=== PATIENT | female | born 1975 | race Caucasian/White ===

== ENCOUNTER 2025-03-12 08:07 | Emergency (ER) | payer OTHER, SELFPAY ==
--- OUTSIDE RECORDS SUMMARY | 2025-03-12 08:09 | XMS_ITS | Encounter Summary ---
Author Organization [employer] Address 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 Gender Identity Not on file Sexual Orientation Not on file documented as of this encounter Plan of Treatment Not on file documented as of this encounter Procedures Procedure Name Priority Date/Time Associated Diagnosis Comments CBC WITH DIFFERENTIAL Routine 09/15/2004 11:40 PM CDT CBC WITH DIFFERENTIAL Routine 09/15/2004 11:40 PM CDT documented in this encounter Results * CBC WITH DIFFERENTIAL (09/15/2004 11:40 PM CDT) NEUTROPHILS 70 45 - 70 % INTERFAC E SYSTEM LYMPHOCYTES 25 16 - 45 % INTERFAC E SYSTEM MONOCYTES 5 3 - 13 % INTERFACE SYSTEM EOSINOPHILS 0 0 - 7 % INTERFAC E SYSTEM BASOPHILS 0 0 - 2 % INTERFACE SYSTEM NEUTROPHIL ABSOLUTE 6.68 1.90 - 7.00 K/uL INTERFACE SYSTEM LYMPHOCYTE ABSOLUTE 2.34 0.70 - 4.50 K/uL INTERFACE SYSTEM MONOCYTE ABSOLUTE 0.50 0.10 - 1.30 K/uL INTERFACE SYSTEM EOSINOPHIL ABSOLUTE 0.03 0.00 - 0.70 K/uL INTERFACE SYSTEM BASOPHILS ABSOLUTE 0.02 0.00 - 0.20 K/uL INTERFACE SYSTEM 09/15/2004 11:4 0 PM CDT Annalee Tillman Jr., MD HEMATOLOGY ORDERABLES Olivia l Result Performing Organization Address City/[facility] Co de Phone Number INTERFACE SYSTEM Refer to clinic/hospital department * (ABNORMAL) CBC WITH DIFFERENTIAL (09/15/2004 11:40 PM CDT) WBC 9.6 4.0 - 9.8 K/uL INTERFACE SYSTEM RBC 3.62(L) 3.90 - 4.90 M/uL INTERFACE SYSTEM HEMOGLOBIN 10.5(L) 11.8 - 14.8 g/dL INTERFACE SYSTEM HEMATOCRIT 31.8(L) 35.5 - 44.0 % INTERFACE SYSTEM MCV 87.8 82.0 - 99.0 fL INTERFACE SYSTEM MCH 29.0 27.2 - 32.6 pg INTERFACE SYSTEM MCHC 33.0 31.5 - 35.5 % INTERFACE SYSTEM RDW 14.3 11.5 - 14.5 % INTERFACE SYSTEM RDW-STDEV 45.4 37.1 - 48.7 fL INTERFACE SYSTEM PLATELETS 140 140 - 350 K/uL INTERFACE SYSTEM MPV 12.1 9.3 - 12.4 fL INTERFACE SYSTEM 09/15/2004 11:4 0 PM CDT Annalee Tillman Jr., MD HEMATOLOGY ORDERABLES Olivia l Result Performing Organization Address City/[facility] Co de Phone Number INTERFACE SYSTEM Refer to clinic/hospital department documented in this encounter Visit Diagnoses Diagnosis Congenital or acquired abnormality of vulva, with delivery- Primary documented in this encounter Care Teams Stacker And Sorter Operator Relationship Specialty Start Date End Date Felipe Goss MD [address] [facility] [address] [place] [address] PCP - General Family Practice 01/14/17 documented as of this encounter
--- OUTSIDE RECORDS SUMMARY | 2025-03-12 08:09 | XMS_ITS | Encounter Summary ---
Author Organization [employer] Address [address] [place] [address] Care Team Providers Care Crown And Bridge Dental Lab Technician Name Role Phone Felipe Goss MD Primary Care Provider [phone] Encounter Details Date Type Department Care Team (Latest Contact Info) Description 11/08/2001 Inpatient Historical HIS PATIENT IN A BED Annalee Tillman Jr., MD NO ADDRESS ON FILE PREV DELIVERY NOS-DELIVER (Primary Dx) Social History Tobacco Use Types Packs/Day Years Used Date Smoking Tobacco: Never Assessed Comments Unknown Sex and Gender Information Value Date Recorded Sex Assigned at Not on file Legal Sex Female 5:20 AM PRODUCT EXAMINER Gender Identity Not on file Sexual Orientation Not on file documented as of this encounter Plan of Treatment Not on file documented as of this encounter Visit Diagnoses Diagnosis Previous delivery, delivered, with or without mention of antepartum condition- Primary documented in this encounter Care Teams Crown And Bridge Dental Lab Technician Relationship Specialty Start Date End Date Felipe Goss MD [address] [facility] [address] [place] [phone] PCP - General Family Practice 01/14/17 documented as of this encounter
--- OUTSIDE RECORDS SUMMARY | 2025-03-12 08:09 | XMS_ITS | Encounter Summary ---
Author Organization [employer] Address [address] [place] [address] Care Team Providers Care Certifed Refrigeration Operator Name Role Phone Felipe Goss MD Primary Care Provider [phone] Encounter Details Date Type Department Care Team (Latest Contact Info) Description 07/18/1999 Inpatient Historical HIS PATIENT IN A BED Annalee Tillman Jr., MD NO ADDRESS ON FILE Other and unspecified uterine inertia, with delivery (Primary Dx) Social History Tobacco Use Types Packs/Day Years Used Date Smoking Tobacco: Never Assessed Comments Unknown Sex and Gender Information Value Date Recorded Sex Assigned at Not on file Legal Sex Female 5:20 AM DICE MAKER Gender Identity Not on file Sexual Orientation Not on file documented as of this encounter Plan of Treatment Not on file documented as of this encounter Visit Diagnoses Diagnosis Other and unspecified uterine inertia, with delivery- Primary documented in this encounter Care Teams Certifed Refrigeration Operator Relationship Specialty Start Date End Date Felipe Goss MD [address] [facility] [address] [place] [address] PCP - General Family Practice 01/14/17 documented as of this encounter
--- OUTSIDE RECORDS SUMMARY | 2025-03-12 08:09 | XMS_ITS | Encounter Summary ---
Author Organization [facility] Address [address] [place] [address] Care Team Providers Care Armature Tester Name Role Phone Felipe Goss MD Primary Care Provider [phone] Encounter Details Date Type Department Care Team (Late st Contact Info) Description 11/19/2001 Outpatient Historical [facility] Annalee Tillman Jr., MD NO ADDRESS ON FILE Social History Tobacco Use Types Packs/Day Years Used Date Smoking Tobacco: Never Assessed Comments Unknown Sex and Gender Information Value Date Recorded Sex Assigned at Not on file Legal Sex Female 5:20 AM TELEMETRY RN Gender Identity Not on file Sexual Orientation Not on file documented as of this encounter Plan of Treatment Not on file documented as of this encounter Visit Diagnoses Not on filedocumented in this encounter Care Teams Armature Tester Relationship Specialty Start Date End Date Felipe Goss MD [address] [facility] [address] [place] [address] PCP - General Family Practice 01/14/17 documented as of this encounter
--- OUTSIDE RECORDS SUMMARY | 2025-03-12 08:09 | XMS_ITS | Encounter Summary ---
Author Organization [facility] Address [address] [place] [address] Care Team Providers Care Frame Gate Mortiser Operator Name Role Phone Felipe Goss MD Primary Care Provider [phone] Encounter Details Date Type Department Care Team (Late st Contact Info) Description 11/02/2001 Outpatient Historical [facility] Maternal and Ground Floor [address] [facility] [address] [place] [address] Víctor Harris MD [address] [facility] [address] [place] [address] Social History Tobacco Use Types Packs/Day Years Used Date Smoking Tobacco: Never Assessed Comments Unknown Sex and Gender Information Value Date Recorded Sex Assigned at Not on file Legal Sex Female 5:20 AM CARD LACER 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
--- OUTSIDE RECORDS SUMMARY | 2025-03-12 08:10 | XMS_ITS | Encounter Summary ---
Author Organization [facility] Address [address] [place] [address] Care Team Providers Care Ironer Or Presser Name Role Phone Felipe Goss MD Primary Care Provider [phone] Encounter Details Date Type Department Care Team (Late st Contact Info) Description 10/15/2001 Outpatient Historical [facility] Maternal and Ground Floor [address] [facility] [address] [place] [address] Víctor Harris MD [address] [facility] [address] [place] [address] Social History Tobacco Use Types Packs/Day Years Used Date Smoking Tobacco: Never Assessed Comments Unknown Sex and Gender Information Value Date Recorded Sex Assigned at Not on file Legal Sex Female 5:20 AM 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
--- OUTSIDE RECORDS SUMMARY | 2025-03-12 08:10 | XMS_ITS | Clinical Summary ---
Author Organization [facility] Address [address] [facility] [place] [address] Phone Care Team Providers Care Community Outreach Manager Name Role Phone Felipe Goss MD Primary Care Provider [phone] Allergies No known active allergies Family History Medical History Relation Name Comments Breast Cancer Paternal Aunt 50s? Relation Name Status Comments Paternal Aunt Social History Tobacco Use Types Packs/Day Years Used Date Smoking Tobacco: Never Assessed Comments Unknown Sex and Gender Information Value Date Recorded Sex Assigned at Not on file Legal Sex Female 5:20 AM SYSTEM MANAGER Gender Identity Not on file Sexual Orientation Not on file Last Filed Vital Signs Vital Sign Reading Time Taken Comments Blood Pressure - - Pulse - - Temperature - - Respiratory Rate - - Oxygen Saturation - - Inhaled Oxygen Concentration - - Weight 52.2 kg (115 lb) 08/18/2018 9:00 AM CDT Height 160 cm (5' 3) 08/18/2018 9:00 AM CDT Body Mass Index 20.37 08/18/2018 9:00 AM CDT Plan of Treatment Health Maintenance Due Date Last Done Comments DTAP/TDAP/TD VACCINES (1 - Tdap) 1994 HEPATITIS B VACCINES (1 of 3 - 19+ 3-dose series) 1994 HPV/Cotest (21-29) 1996 CERVICAL CANCER SCREENING 2005 HPV/Cotest (30-65) 2005 PAP SMEAR 2005 COLORECTAL SCREENING 2020 Colorectal Cancer Screening 2020 FIT-DNA Q 3 years 2020 FIT/FOBT Q 1 year 2020 Flex Sig/CT Colonography Q 5 years 2020 BREAST CANCER SCREENING 02/06/2024 02/06/20 23, 02/12/2022, 11/04/2019, Additional history exists INFLUENZA VACCINE (#1) 2024 Procedures Procedure Name Priority Date/Time Associated Diagnosis Comments MAMMO 3D AVILA DIAGNOSTIC BILAT W OR WO CAD Routine 02/05/2023 12:12 PM CDT Mass of breast, unspecified laterality from Last 3 Months or Most Recently Relevant to Health Maintenance Results * MAMMO DIAG BILAT 3D AVILA W OR WO CAD (02/05/2023 12:12 PM CDT) Anatomical Region Laterality Modality Breast Bilateral Mammography 02/05/2023 12:2 2 PM CDT Impressions 02/05/2023 12:52 PM CDT IMPRESSION: No suspicious finding within either breast. Annual mammography recommended. BI-RADS Category 2: Benign findings DICTATION LOCATION: [facility] 02/05/2023 12:52 PM CDT EXAM: BILATERAL DIGITAL DIAGNOSTIC MAMMOGRAPHY WITH TOMOSYNTHESIS AND CAD BILATERAL IMPLANT DISPLACED VIEWS LIMITED RIGHT BREAST ULTRASOUND Exam date: 02/05/2023 INDICATION: Palpable right breast lump at the 10:00 axis. COMPARISON: Mammography dated 02/12/2022 and older. BREAST COMPOSITION: The breasts are heterogeneously dense, which may obscure small masses. MAMMOGRAM: Bilateral breast implants are noted. The palpable lump corresponds to dense tissue. There is no suspicious calcification. No concerning mass. Ultrasound was performed. ULTRASOUND: Targeted real-time ultrasound was performed on the palpable right breast lump. At the 10:00 axis, 7 cm from the nipple, there are multiple anechoic simple cysts corresponding to the palpable lump. The dominant cyst measures up to 1.5 cm. No abnormal shadowing. Procedure Note Taylor Madrigal MD - 02/05/2023 EXAM: BILATERAL DIGITAL DIAGNOSTIC MAMMOGRAPHY WITH TOMOSYNTHESIS AND CAD BILATERAL IMPLANT DISPLACED VIEWS LIMITED RIGHT BREAST ULTRASOUND Exam date: 02/05/2023 INDICATION: Palpable right breast lump at the 10:00 axis. COMPARISON: Mammography dated 02/12/2022 and older. BREAST COMPOSITION: The breasts are heterogeneously dense, which may obscure small masses. MAMMOGRAM: Bilateral breast implants are noted. The palpable lump corresponds to dense tissue. There is no suspicious calcification. No concerning mass. Ultrasound was performed. ULTRASOUND: Targeted real-time ultrasound was performed on the palpable right breast lump. At the 10:00 axis, 7 cm from the nipple, there are multiple anechoic simple cysts corresponding to the palpable lump. The dominant cyst measures up to 1.5 cm. No abnormal shadowing. IMPRESSION: No suspicious finding within either breast. Annual mammography recommended. BI-RADS Category 2: Benign findings DICTATION LOCATION: [facility] Nancie De Leon MD MAMMO ORDERABLES Final R esult from Last 3 Months or Most Recently Relevant to Health Maintenance Insurance [address] OPEN ACCESS O Care Teams Community Outreach Manager Relationship Specialty Start Date End Date Felipe Goss MD [address] [address] PCP - General Family Practice 01/14/17
--- OUTSIDE RECORDS SUMMARY | 2025-03-12 08:10 | XMS_ITS | Clinical Summary ---
Author Organization [facility] [address] Address [address] [place] [address] Care Team Providers Care Choke Setter Name Role Phone No, Physician Primary Care Provider [phone] Allergies No known active allergies Medications latanoprost (XALATAN) 0.005 % ophthalmic solution 01/20/2023 Active brimonidine (ALPHAGAN) 0.15 % ophthalmic solution 1 drop 3 (three) times a day Active Active Problems No known active problems Medical History Medical History Date Comments Glaucoma Social History Tobacco Use Types Packs/Day Years Used Date Smoking Tobacco: Never Assessed Comments Unknown Sex and Gender Information Value Date Recorded Sex Assigned at Not on file Legal Sex Female 9:04 AM CARROT BUNCHER Gender Identity Not on file Sexual Orientation Not on file Last Filed Vital Signs Vital Sign Reading Time Taken Comments Blood Pressure 112/64 02/25/2023 11:10 AM CARROT BUNCHER Pulse 73 02/25/2023 11:10 AM CARROT BUNCHER Temperature 36.7 C (98 F) 02/25/2023 11:10 AM CARROT BUNCHER Respiratory Rate 20 02/25/2023 11:10 AM CARROT BUNCHER Oxygen Saturation 99% 02/25/2023 11:10 AM CARROT BUNCHER Inhaled Oxygen Concentration - - Weight 52.2 kg (115 lb) 02/25/2023 11:10 AM CARROT BUNCHER Height 161.3 cm (5' 3.5) 02/25/2023 11:10 AM CS T Body Mass Index 20.05 02/25/2023 11:10 AM CARROT BUNCHER Plan of Treatment Health Maintenance Due Date Last Done Comments Breast Cancer Screening-Mammogram 1975 Cervical Cancer Screening 1975 Colon Cancer Screening-Colonoscopy 1975 Depression Screening 1975 Hepatitis C Screening 1975 DTaP/Tdap/Td Vaccine (1 - Tdap) 1986 Hepatitis B Screening 1993 Regular Well Visit/Exam 18-64 1993 Covid-19 Vaccine ( season) 2024 03/07/2021, 07/27/2020, 07/06/2020 Influenza Vaccine (#1) 2024 , 03/07/2021, 03/23/2019, Additional history exists Pneumococcal vaccine <65 Aged Out No longer eligible based on patient's age to complete this topic Insurance [employer] Care Teams Choke Setter Relationship Specialty Start Date End Date No, Physician PCP - General 02/25/23
--- OUTSIDE RECORDS SUMMARY | 2025-03-12 08:10 | XMS_ITS | Clinical Summary ---
Author Organization [facility] Address [address] [place] [address] Care Team Providers Care Community Relations Assistant Name Role Phone Unavailable Primary Care Provider Unavailabl e Social History Tobacco Use Types Packs/Day Years Used Date Smoking Tobacco: Never Assessed Comments Unknown Sex and Gender Information Value Date Recorded Sex Assigned at Not on file Legal Sex Female 4:53 PM CDT Gender Identity Not on file Sexual Orientation Not on file Plan of Treatment Health Maintenance Due Date Last Done Comments Cervical Cancer Screening Pa p Smear (Age 30 to 64) Every 3 Years 1975 Colorectal Cancer Screening Colonoscopy (10 Years) 1975 Annual Physical 1978 Hepatitis C 1993 DTaP, Tdap and Td Vaccines ( 1 - Tdap) 1994 Hepatitis B Vaccines (1 of 3 - 19+ 3-dose series) 1994 Cervical Cancer Screening Pa p with HPV Testing (Age 30 to 64) Every 5 Years 2005 Cervical Cancer Screening with HPV 2005 Mammogram Screening 2015 COVID-19 Vaccine (2024-2 6 season) 2024 Influenza Adult (#1) 2025 Hepatitis A Vaccines Aged Out No long er eligible based on patient's age to complete this topic Meningococcal B Vaccine Aged Out No l onger eligible based on patient's age to complete this topic Meningococcal Vaccine Aged Out No stephanie alvaro eligible based on patient's age to complete this topic Pneumococcal Vaccine: Pediat rics (0 to 5 Years) and At-Risk Patients (6 to 49 Years) Aged Out No longer eligible b ased on patient's age to complete this topic RSV Immunizations Under 20 Months Aged Out No longer eligible based on patient's age to complete this topic
--- OUTSIDE RECORDS SUMMARY | 2025-03-12 08:10 | XMS_ITS | Encounter Summary ---
Author Organization [email or web address] Address [address] [place] [address] Care Team Providers Care Solar Installation Technician Name Role Phone Felipe Goss MD Primary Care Provider [phone] Encounter Details Date Type Department Care Team (Latest Contact Info) Description 09/16/2001 Outpatient Historical [facility] Annalee Tillman Jr., MD NO ADDRESS ON FILE ABNL FINDINGS ON SCREEN (Primary Dx) Social History Tobacco Use Types Packs/Day Years Used Date Smoking Tobacco: Never Assessed Comments Unknown Sex and Gender Information Value Date Recorded Sex Assigned at Not on file Legal Sex Female 5:20 AM DYE MIXER Gender Identity Not on file Sexual Orientation Not on file documented as of this encounter Plan of Treatment Not on file documented as of this encounter Visit Diagnoses Diagnosis Abnormal findings on screening- Primary documented in this encounter Care Teams Solar Installation Technician Relationship Specialty Start Date End Date Felipe Goss MD [address] [facility] [address] [place] [address] PCP - General Family Practice 01/14/17 documented as of this encounter
--- OUTSIDE RECORDS SUMMARY | 2025-03-12 08:10 | XMS_ITS | Encounter Summary ---
Author Organization [facility] Address [address] [place] [address] Care Team Providers Care Compact Assembler Name Role Phone Felipe Goss MD Primary Care Provider [phone] Encounter Details Date Type Department Care Team (Late st Contact Info) Description 09/07/2001 Outpatient Historical [facility] Maternal and Ground Floor [address] [facility] [address] [place] [address] Víctor Harris MD [address] [facility] [address] [place] [address] Social History Tobacco Use Types Packs/Day Years Used Date Smoking Tobacco: Never Assessed Comments Unknown Sex and Gender Information Value Date Recorded Sex Assigned at Not on file Legal Sex Female 5:20 AM PULPIT OPERATOR Gender Identity Not on file Sexual Orientation Not on file documented as of this encounter Plan of Treatment Not on file documented as of this encounter Visit Diagnoses Not on filedocumented in this encounter Care Teams Compact Assembler Relationship Specialty Start Date End Date Felipe Goss MD [address] [facility] [address] [place] [address] PCP - General Family Practice 01/14/17 documented as of this encounter
--- OUTSIDE RECORDS SUMMARY | 2025-03-12 08:10 | XMS_ITS | Encounter Summary ---
Author Organization [employer] Address [address] [place] [address] Care Team Providers Care License Examiner Name Role Phone Felipe Goss MD Primary Care Provider [phone] Encounter Details Date Type Department Care Team (Late st Contact Info) Description 01/21/2006 Outpatient Historical [facility] Dino Velasquez MD [address] [facility] [address] [place] [phone] Other Screening Mammogram (Primary Dx) Social History Tobacco Use Types Packs/Day Years Used Date Smoking Tobacco: Never Assessed Comments Unknown Sex and Gender Information Value Date Recorded Sex Assigned at Not on file Legal Sex Female 5:20 AM SHIP PILOT Gender Identity Not on file Sexual Orientation Not on file documented as of this encounter Plan of Treatment Not on file documented as of this encounter Visit Diagnoses Diagnosis Other screening mammogram- Primary documented in this encounter Care Teams License Examiner Relationship Specialty Start Date End Date Felipe Goss MD [address] [facility] [address] [place] [address] PCP - General Family Practice 01/14/17 documented as of this encounter
--- OUTSIDE RECORDS SUMMARY | 2025-03-12 08:10 | XMS_ITS | Encounter Summary ---
Author Organization [employer] Address [address] [place] [address] Care Team Providers Care Signals Collection Technician Name Role Phone Felipe Goss MD Primary Care Provider [phone] Encounter Details Date Type Department Care Team (Latest Contact Info) Description 07/14/2001 Outpatient Historical [facility] Annalee Tillman Jr., MD NO ADDRESS ON FILE ABNL FINDINGS ON SCREEN (Primary Dx) Social History Tobacco Use Types Packs/Day Years Used Date Smoking Tobacco: Never Assessed Comments Unknown Sex and Gender Information Value Date Recorded Sex Assigned at Not on file Legal Sex Female 5:20 AM WEATHERIZATION FIELD TECHNICIAN Gender Identity Not on file Sexual Orientation Not on file documented as of this encounter Plan of Treatment Not on file documented as of this encounter Visit Diagnoses Diagnosis Abnormal findings on screening- Primary documented in this encounter Care Teams Signals Collection Technician Relationship Specialty Start Date End Date Felipe Goss MD [address] [facility] [address] [place] [address] PCP - General Family Practice 01/14/17 documented as of this encounter
--- OUTSIDE RECORDS SUMMARY | 2025-03-12 08:10 | XMS_ITS | Encounter Summary ---
Author Organization [email or web address] Address [address] [place] [address] Care Team Providers Care Warp Changer Name Role Phone Felipe Goss MD Primary Care Provider [phone] Encounter Details Date Type Department Care Team (Latest Contact Info) Description 08/15/2001 Outpatient Historical [facility] Annalee Tillman Jr., MD NO ADDRESS ON FILE ABNL FINDINGS ON SCREEN (Primary Dx) Social History Tobacco Use Types Packs/Day Years Used Date Smoking Tobacco: Never Assessed Comments Unknown Sex and Gender Information Value Date Recorded Sex Assigned at Not on file Legal Sex Female 5:20 AM GLOVE TURNER AND FORMER Gender Identity Not on file Sexual Orientation Not on file documented as of this encounter Plan of Treatment Not on file documented as of this encounter Visit Diagnoses Diagnosis Abnormal findings on screening- Primary documented in this encounter Care Teams Warp Changer Relationship Specialty Start Date End Date Felipe Goss MD [address] [facility] [address] [place] [address] PCP - General Family Practice 01/14/17 documented as of this encounter
--- OUTSIDE RECORDS SUMMARY | 2025-03-12 08:10 | XMS_ITS | Encounter Summary ---
Author Organization [facility] Address [address] [place] [address] Care Team Providers Care Learning And Development Director Name Role Phone Felipe Goss MD Primary Care Provider [phone] Encounter Details Date Type Department Care Team (Latest Contact Info) Description 10/18/2001 Outpatient Historical [facility] Annalee Tillman Jr., MD NO ADDRESS ON FILE ABNL FINDINGS ON SCREEN (Primary Dx) Social History Tobacco Use Types Packs/Day Years Used Date Smoking Tobacco: Never Assessed Comments Unknown Sex and Gender Information Value Date Recorded Sex Assigned at Not on file Legal Sex Female 5:20 AM MENTAL HEALTH PROGRAM SPECIALIST Gender Identity Not on file Sexual Orientation Not on file documented as of this encounter Plan of Treatment Not on file documented as of this encounter Visit Diagnoses Diagnosis Abnormal findings on screening- Primary documented in this encounter Care Teams Learning And Development Director Relationship Specialty Start Date End Date Felipe Goss MD [address] [facility] [address] [place] [address] PCP - General Family Practice 01/14/17 documented as of this encounter
--- OUTSIDE RECORDS SUMMARY | 2025-03-12 08:10 | XMS_ITS | Encounter Summary ---
Author Organization [facility] Address 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
[2025-03-12 08:24] VITALS: BP 135/74; PULSE 87; RESP 20; TEMP 36.8; O2SAT 100
--- NOTE | 2025-03-12 08:35 | ED.URI ---
HPI - URI/Sore Throat General Chief Complaint: Upper Respiratory Infection Stated Complaint: sore throat Time Seen by Provider: 03/12/25 08:30 Source: patient and RN notes reviewed Mode of arrival: ambulatory Limitations: no limitations History of Present Illness HPI Narrative: 49-year-old female presents concern for sore throat, chills, body aches, headache and nasal congestion. 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 She reports most of the symptoms for couple of days, but the nasal congestion started before Thanksgiving. MD elicited complaint: sore throat Related Data Home Medications ?Medication ?Instructions ?Recorded ?Confirmed ?Last Taken ?Type brimonidine 0.15 % eye drops 1 drp EACH EYE Q8H 11/20/20 Unknown History latanoprost 0.005 % eye drops drp 03/12/25 Unknown History Allergies Allergy/AdvReac Type Severity Reaction Status Date / Time No Known Allergies Allergy Verified 03/12/25 08:21 Review of Systems Review of Systems: CONSTITUTIONAL: Reports malaise, chills EYES: Denies visual changes, redness, or discharge. ENT: Reports rhinorrhea, congestion, and sore throat. CARDIOVASCULAR: Denies chest pain, palpitations, or edema. RESPIRATORY: Reports cough. Denies dyspnea. GASTROINTESTINAL: Denies abdominal pain, nausea, vomiting, diarrhea SKIN: Denies rash or itching. MUSCULOSKELETAL: Reports myalgia. NEUROLOGIC: Reports headache. All systems reviewed & are unremarkable except as noted in HPI and below PMFSH Family History Family History Mother Family history of rheumatoid arthritis Family history of lupus erythematosus Sibling Family history of lupus erythematosus Social History Social History Smoking status: Never smoker Alcohol intake: current Alcohol use details: social Substance use: never Living arrangements: with family Occupation/Education: other Gender identity (if verbalized by the patient): Female Comments At time of signature, agree with nursing past medical, surgical, social and family history. There is no relevant family history pertinent to the presenting complaint Exam Narrative: GENERAL: Well-appearing, well-nourished, and in no acute distress. HEAD: Normocephalic EYES: PERRLA, conjunctivae clear ENT: Nares clear. Mucous membranes moist. TM pearly amos with sharp light reflex bilaterally; no tragal tenderness. Oropharynx erythematous without lesions. Tonsils enlarged and without exudate, no drooling, no hoarseness, no trismus, uvula midline. NECK: Supple. No lymphadenopathy CHEST: Clear to auscultation, breath sounds equal. No wheezing, rhonchi, rales, or stridor. No respiratory distress, speaks in full sentences. HEART: Regular rate and rhythm. No murmur heard. SKIN: Warm, dry, no rash. NEURO: Alert and oriented x3. PSYCH: Normal mood and affect Course Course Level of Care: [facility] Visit Vital Signs Vital signs: Vital Signs Temperature 98.3 F 03/12/25 08:24 Pulse Rate 87 03/12/25 08:24 Respiratory Rate 20 03/12/25 08:24 Blood Pressure 135/74 03/12/25 08:24 Pulse Oximetry 100 03/12/25 08:24 Oxygen Delivery Room Air 03/12/25 08:24 Temperature 98.3 F 03/12/25 08:24 Pulse Rate 87 03/12/25 08:24 Respiratory Rate 20 03/12/25 08:24 Blood Pressure 135/74 03/12/25 08:24 Pulse Oximetry 100 03/12/25 08:24 Oxygen Delivery Room Air 03/12/25 08:24 MDM Differential Diagnosis Differential Diagnosis: I evaluated this patient in the [facility]. History is obtained from patient who is an independent historian and physical exam was performed.? Available medical records were reviewed. ? Exam findings and relevant testing show no acute concerns or changes; patient is non-toxic appearing and is in no distress. ? Differential diagnosis considered: Olivarez virus, strep pharyngitis, allergic rhinitis, upper respiratory tract infection, sinusitis, rhinosinusitis, nasopharyngitis. viral pharyngitis, otitis media, otitis externa, pneumonia, bronchitis, viral cough syndrome, viral syndrome, and influenza. Differential diagnosis and treatment plan were discussed with the patient. Patient agrees with discussion and after shared medical decision making agrees with plan of care. All questions were answered to the patient's satisfaction. Patient is appropriate for outpatient treatment and follow-up. Discharge Plan Discharge Clinical Impression: Strep throat Patient Disposition: Home Condition: Stable Instructions: Antibiotic Form, Strep Throat (ED) Additional Instructions: -Take the medication as prescribed. Throw away the toothbrush after 24hours of antibiotic. -Eat and drink things that are easy to swallow, like tea or soup, or popsicles to suck on. -Oral rinses such as: Salt water gargles and/or may use topical anesthetic (eg. Chloraseptic spray) or lozenges to relieve dryness or throat pain). -Take Tylenol and ibuprofen as needed for pain and fever as directed. -Frequent hand washing or hand computer forensics investigator is one of the best ways to prevent spread of infection. -Follow up with primary care provider in 2-3 days if condition is not improving; or seek ER visit if you have trouble breathing, cannot drink enough fluids, have muffled voice, difficulty opening your mouth, or severe swelling. Patient Language: Austrian Prescriptions: New penicillin V potassium 500 mg tablet 500 mg PO Q12H 10 Days Qty: 20 0RF No Action latanoprost 0.005 % drops brimonidine 0.15 % drops 1 drp EACH EYE Q8H Follow-up/Referrals: Felipe Goss MD [Primary Care Provider, Family Practice] Stand Alone Forms: Work/School Release IP Time of Disposition: 08:40
[2025-03-12 08:48] LABS: EDSTREPNEGPOS1 Positive (Negative)
== END 2025-03-12 08:44 | disposition home or self-care (01) ==
PROVIDERS: Emergency Provider Nurse Practitioner; PCP Family Medicine
DX: J02.0 Streptococcal pharyngitis (principal); H40.20X0 Unspecified primary angle-closure glaucoma, stage unspecified
CPT/HCPCS: 87880; 99213; G0463